=== PATIENT | female | born 1990 | race Two or more races ===

== ENCOUNTER 2019-01-08 10:07 | Inpatient (IN) | payer MEDICAID ==
[~2019-01-08] VITALS: Ht 154.9 cm; Wt 106.6 kg
[2019-01-08 10:11] VITALS: Ht 154.9 cm; Wt 106.6 kg
--- NOTE | 2019-01-08 10:18 | NUR ---
PT WALKED TO ROOM 9 WITH STEADY GAIT. CO SOB. POSSIBLE ALLERGIC REACTION. PT WAS A/OX3. SPEAKS FULL SENTENCES, FOLLOWS COMMAND, DENIES DINH AND DIZZINESS. VS STABLE.
--- NOTE | 2019-01-08 10:27 | NUR ---
ED PHYSICIAN AT BEDSIDE FOR PATIENT EVALUATION. MEDICAL SCREENING EXAMINATION COMPLETED BY ED PHYSICIAN.
--- NOTE | 2019-01-08 11:30 | NUR ---
MEDICATED PT PER MD ORDER.
[2019-01-08 11:31] LABS: CALCIUM 7.8 mg/dL (8.5-10.1); CARBON DIOXIDE 30.9 mmol/L (21-32); CHLORIDE SERUM 106 mmol/L (98-107); CREATININE SERUM 0.8 mg/dL (0.6-1.0); GFR1 > 60 mL/min; GLUCOSE SERUM 86 mg/dL (74-106); POTASSIUM SERUM 3.6 mmol/L (3.5-5.1); SODIUM SERUM 142 mmol/L (136-145)
[2019-01-08 11:32] LABS: BASOPHIL % 0.4 % (0-2); PLATELET COUNT 171 x10^3mcL (130-400)
[2019-01-08 11:35] LABS: ALKALINE PHOSPHATASE 49 U/L (46-116); ALT/SGPT 44 U/L (14-59); AST/SGOT 30 U/L (15-37); BILIRUBIN TOTAL 0.2 mg/dL (0.20-1.00); LIPASE 96 IU/L (73-393); TOTAL PROTEIN, SERUM 7.2 g/dL (6.4-8.2)
[2019-01-08 11:39] LABS: RED CELL DISTRIBUTION WIDTH 14.6 % (11.5-14.5)
[2019-01-08 11:47] LABS: ALBUMIN 2.8 g/dL (3.4-5.0)
[2019-01-08 12:23] LABS: AMPHETAMINE QUAL UR NONE DETECTED (See below)
--- NOTE | 2019-01-08 13:05 | NUR ---
SL ESTABLISHED ON LFA 20G FOR ANGIOGRAM.
[2019-01-08 13:52] LABS: MAGNESIUM 2.2 mg/dL (1.8-2.4); PHOSPHOROUS 3.4 mg/dL (2.5-4.9)
[2019-01-08 14:04] LABS: T3 TOTAL 0.94 ng/mL
[2019-01-08] MEDS ORDERED: BANOPHEN25 MG (14:10)
[2019-01-08] MEDS ORDERED: LORATADINE10 M3 (14:10)
[2019-01-08] MEDS ORDERED: PREDNISONE20 MG (14:10)
--- NOTE | 2019-01-08 14:30 | NUR ---
PT WAS ADMITED TO TELE ROOM 205B. REPORT WAS CALLED AND GIVEN TO JOLYNN. BERNIE.
--- NOTE | 2019-01-08 14:40 | NUR ---
RECEIVED PT VIA RNOTI FROM E/D, ACCOMPANIED BY RN, TRANSPORTER, AND PT'S , BRIAN PASCAL. PT A/A/O X 4, CALM, COOPERATIVE, C/O "DULL H/A, BUT NO PAIN"; SERBIAN-SPEAKING ONLY, BENEDICTO VITALE FOR TRANSLATION AT BEDSIDE. AMBULATORY, NO GAIT OR BALANCE IMPAIRMENT NOTED WHEN WALKING FROM GURNEY TO BED. ON TELE # 24, HR 66, NSR, DENIES CHEST PAIN OR DISCOMFORT AT THIS TIME. SCD BY BEDSIDE. NO ACUTE RESPIRATORY DISTRESS NOTED. IV SITE LFA 20G, CDI. ORIENTED PT AND TO ROOM, BED CONTROLS, CALL LIGHT SYSTEM. SIDE RAILS UP X 2, BED IN LOW POSITION. WILL ENDORSE TO BERNIE GONZALEZ.
[2019-01-08 15:09] LABS: FREE T4 0.97 ng/dL (0.76-1.46); FREE THYROXINE INDEX 2.7 ug/dL (1.4-4.5); T4(THYROXINE) 7.7 ug/dL (4.7-13.3)
[2019-01-08 16:06] VITALS: BP 125/67
[2019-01-08 16:11] LABS: CHOLESTEROL/HDL RATIO 4.8
[2019-01-08 17:40] VITALS: BP 119/72
--- NOTE | 2019-01-08 18:53 | NUR ---
PATIENT WENT DOWN FOR CT. IV TO LFA SALINE LOCK. NO ACUTE CHANGES NOTED THROUGH OUT SHIFT. PATIENT DENIES PAIN. WILL ENDORSE REPORT TO NIGHT RN.
--- NOTE | 2019-01-08 19:15 | NUR ---
REPORT RECEIVED FROM DAY SHIFT RN. PATIENT WAS SEEN RESTING COMFORTABLY IN BED. NO DISTRESS NOTED. AT BEDSIDE. BREATHING EVEN AND UNLABORED ON ROOM AIR. NO SOB OR RESP DISTRESS NOTED. C/O CHEST PRESSURE TO BACK WITH INHALATION. TOLAERABLE. DENIES CHEST PAIN. IV TO THE LFA. SALINE LOCK, PATENT AND INTACT. NO REDNESS OR SWELLING NOTED. REPORTS LEFT SIDED FACIAL NUMBNESS. TINGLING SENSATION. NO C/O PAIN. COMFORT AND SAFETY MEASURES IN PLACE. BED IS LOCKED AND IN THE LOWEST POSITION. SIDE RAILS UP X2. CALL LIGHT IS WITHIN REACH. WILL CONTINUE TO MONITOR.
--- NOTE | 2019-01-08 20:15 | NUR ---
TELE NEURO CONSULT IN PROGRESS WITH NEUROLOGCOLT BECKMAN FROM [facility].
--- NOTE | 2019-01-08 20:40 | NUR ---
TELE NEURO DONE: RECOMMENDATION IS MRI. NOTIFIED DR MUSA.
--- NOTE | 2019-01-08 21:10 | NUR ---
LEFT LEG PAIN. HIGH DDIMER. NOTIFIED DR MUSA AND RECOMMENDED US OF BLE AND ANTICOUAGULATE THERAPY. AWAITING ORDERS.
[2019-01-08 21:28] VITALS: BP 108/60
--- NOTE | 2019-01-08 22:06 | NUR ---
URINE COLLECTED FOR UA. PATIENT IN MENSES, REPORTS THAT SHE STARTED YESTERDAY.
--- NOTE | 2019-01-08 23:03 | NUR ---
CALLED US ABOUT STAT ORDER. THEY SAID THEY'LL COME UP SOON.
[2019-01-09 00:05] LABS: microscopic required? YES; urine erythrocyte 3+ (NEGATIVE)
--- NOTE | 2019-01-09 00:23 | NUR ---
UA + NITRATES AND TRACE LEUKS. NOTIFIED DR UMSA.
--- NOTE | 2019-01-09 01:09 | NUR ---
RESTING IN BED WITH EYES CLOSED. NO DISTRESS NOTED. BREATHING EVEN AND UNLABORED ON ROOM AIR. NO SOB NOTED. NO S/S OF PAIN NOTED. SAFETY MEASURES IN PLACE. SAFETY MEASURES IN PLACE. CALL LIGHT IS WITHIN REACH. WILL CONTINUE TO MONITOR.
[2019-01-09 05:22] VITALS: BP 103/59
--- NOTE | 2019-01-09 05:58 | NUR ---
RESTED IN LONG INTERVALS THROUGHOUT THE NIGHT. NO ACUTE CHANGES NOTED. NO DISTRESS NOTED. BREATHING EVEN AND UNLABORED ON ROOM AIR. NO SOB NOTED. MILD CHEST PRESSURE WITH INHALATION. TROP X3 NEGATIVE. IV INTACT. SALINE LOCK. NO C/O PAIN. AT BEDSIDE THROUGHOUT THE NIGHT. ALL NEEDS AND CONCERNS ADDRESSED. SAFETY MEASURES IN PLACE. CALL LIGHT IS WITHIN REACH. WILL ENDORSE CARE TO DAY SHIFT RN.
[2019-01-09 06:50] LABS: BASOPHIL % 0.3 % (0-2); PLATELET COUNT 197 x10^3mcL (130-400)
[2019-01-09 07:00] LABS: RED CELL DISTRIBUTION WIDTH 14.6 % (11.5-14.5)
[2019-01-09 07:18] LABS: CALCIUM 7.8 mg/dL (8.5-10.1); CARBON DIOXIDE 27.1 mmol/L (21-32); CHLORIDE SERUM 106 mmol/L (98-107); CREATININE SERUM 0.6 mg/dL (0.6-1.0); GFR1 > 60 mL/min; GLUCOSE SERUM 87 mg/dL (74-106); MAGNESIUM 2.3 mg/dL (1.8-2.4); POTASSIUM SERUM 3.2 mmol/L (3.5-5.1); SODIUM SERUM 142 mmol/L (136-145)
--- NOTE | 2019-01-09 07:30 | NUR ---
PATIENT RESTING IN BED, COMFORTABLY. PATIENT C/O INTERMITTENT CHEST PRESSURE UPON DEEP BREATHING. PATIENT C/O HEADACHE 06/10. TELE MONITOR IN PLACE. NO EDEMA NOTED. PATIENT DENIES SOB. BOWEL SOUNDS ACTIVE X4, DENIES ABNORMALS STOOLS. PATIENT REPORTS BEING ON MENSES. IV TO LFA SALINE, CDI& PATENT, NO S/S OF INFILTRATION. CALL LIGHT WITHIN REACH, BED IN LOW POSITION, WILL CONTINUE TO MONITOR.
[2019-01-09 08:48] VITALS: BP 109/67
--- NOTE | 2019-01-09 10:00 | NUR ---
DR. GAY AWARE PATIENT K WAS 3.2, DR. GAY WILL PLACE NEW ORDERS TO REPLACE K.
--- NOTE | 2019-01-09 10:53 | NUR ---
ECHOCARDIOGRAM COMPLETED.
[2019-01-09 12:23] VITALS: BP 129/86
--- NOTE | 2019-01-09 13:05 | NUR ---
PATIENT RESTING IN BED COMFORTABLY, NO ACUTE DISTRESS NOTED. PATIENT DENIES PAIN. IV ABXS GIVEN AT THIS TIME. ALL NEEDS MET AT THIS TIME. CALL LIGHT WITH REACH BED IN LOW POSITION, WILL CONTINUE TO MONITOR.
[2019-01-09] MEDS ORDERED: LEVOFLOXACIN500 M1 PO (16:15)
[2019-01-09 17:06] VITALS: BP 108/63
--- NOTE | 2019-01-09 17:45 | NUR ---
PATIENT IS TO BE D/C HOME. PATIENT RECEIVED COPY OF DISCHARGE INSTRUCTIONS, PATIENT UNDERSTANDS & AGREES WITH D/C INSTRUCTIONS AND PLAN OF CARE, INCLUDING MEDICATIONS & FOLLOW UP WITH PCP. ALL QUESTIONS AND CONCERNS ADDRESSED. 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 IV TO LFA REMOVED, CATH INTACT.
== END 2019-01-09 18:45 | disposition home or self-care (01) | DRG 203 ==
LOC: ED 10:07 → DU 13:23 → MU 01-09 16:06
PROVIDERS: Emergency Medicine; ADMIT Internal Medicine
DX: R07.89 Other chest pain (principal); E44.0 Moderate protein-calorie malnutrition; E83.51 Hypocalcemia; H53.2 Diplopia; R51 Headache; N39.0 Urinary tract infection, site not specified; R20.0 Anesthesia of skin; E66.9 Obesity, unspecified; Z68.24 Body mass index [BMI] 24.0-24.9, adult; Z82.49 Family history of ischemic heart disease and other diseases of the circulatory system
CPT/HCPCS: 83880; 84439; 85378; 87804; 90658; G0378; G0480; J0696; J1644; J1940; J7050; Q9967